=== PATIENT | female | born 1990 | race Caucasian/White ===

== ENCOUNTER 2018-01-13 09:48 | Emergency (ER) | payer MEDICAID | END 2018-01-13 11:31 | disposition home or self-care (01) | LOC: E/R 11:31 | DX: M77.9 Enthesopathy, unspecified (principal) | CPT/HCPCS: 73610; 73630-LT; 99283-25 ==

== ENCOUNTER 2018-02-27 17:44 | Emergency (ER) | payer MEDICAID | END 2018-02-27 18:15 | disposition home or self-care (01) | LOC: E/R 18:15 | DX: N61.0 Mastitis without abscess (principal) | CPT/HCPCS: 99283 ==

== ENCOUNTER 2018-05-03 06:00 | Emergency (ER) | payer MEDICAID | END 2018-05-03 06:44 | disposition home or self-care (01) | LOC: FTE 06:00 | DX: J02.9 Acute pharyngitis, unspecified (principal); N64.4 Mastodynia; H92.03 Otalgia, bilateral | CPT/HCPCS: 99283; Z7502 ==

== ENCOUNTER 2018-10-31 20:14 | Emergency (ER) | payer MEDICAID ==
[2018-10-31 23:40] LABS: URINE PH (Dip) POC 5.5 (5.0-8.5)
[2018-10-31 23:40] LABS: URINE BLOOD (Dip) POC 1+ (NEGATIVE); URINE GLUCOSE (Dip) POC Negative (NEGATIVE); URINE KETONES (Dip) POC Negative (NEGATIVE); URINE LEUKOCYTE EST (Dip) POC 1+ (NEGATIVE); URINE NITRITE (Dip) POC Negative (NEGATIVE); URINE TOTAL PROTEIN POC Trace (NEGATIVE)
[2018-10-31] MEDS: KETOROLAC 30 MG INJ IM (23:41)
== END 2018-11-01 01:07 | disposition home or self-care (01) ==
LOC: FTE 11-01 01:07
DX: M54.5 Low back pain (principal); N39.0 Urinary tract infection, site not specified
CPT/HCPCS: 81003; 81025; 96372; 99284-25

== ENCOUNTER 2018-11-06 15:54 | Emergency (ER) | payer MEDICAID ==
[2018-11-06 17:03] LABS: URINE PH (Dip) POC 6.5 (5.0-8.5)
[2018-11-06 17:03] LABS: URINE BLOOD (Dip) POC Trace-intact (NEGATIVE); URINE GLUCOSE (Dip) POC Negative (NEGATIVE); URINE KETONES (Dip) POC Trace (NEGATIVE); URINE LEUKOCYTE EST (Dip) POC 1+ (NEGATIVE); URINE NITRITE (Dip) POC Negative (NEGATIVE); URINE TOTAL PROTEIN POC Negative (NEGATIVE)
== END 2018-11-06 17:24 | disposition home or self-care (01) ==
LOC: FTE 15:54
DX: N30.00 Acute cystitis without hematuria (principal)
CPT/HCPCS: 81003; 81025; 99283